=== PATIENT | male | born 1960 | race Hispanic/Latino ===

== ENCOUNTER 2017-10-10 17:57 | Emergency (ER) | payer MEDICAID ==
[2017-10-10 18:15] VITALS: BP 163/91; PULSE 84; RESP 18; TEMP 97.6; O2SAT 97
[2017-10-10] MEDS ORDERED: Amoxicillin-Clav 875-125 mg Tab PO STA (18:34)
--- NOTE | 2017-10-10 18:37 | C.PDOC ---
History Of Present Illness 57 yo male come in for evaluation of Right ear " burning sensation" gradually developed for past few days. Pt reports, " burning in ear and in front". Otherwise, pt denies fever, chills, ear discharge, headache, dizziness, vertigo , tinnitus, sore throat, neck pain, cough, denies known trauma or injury, denies rash. Ambulate to Ed for evaluation, not in nay apparent distress. Time Seen by Provider: 10/10/17 18:12 Chief Complaint (Nursing): ENT Problem History Per: Patient Past Medical History Reviewed: Historical Data, Nursing Documentation, Vital Signs Vital Signs: Last Vital Signs Temp 97.6 F 10/10/17 18:12 Pulse 84 10/10/17 18:12 Resp 18 10/10/17 18:12 BP 163/91 H 10/10/17 18:12 Pulse Ox 97 10/10/17 18:12 - Medical History PMH: Bipolar Disorder, Diverticulitis, HTN, Hypercholesterolemia Family History: States: No Known Family Hx - Social History Hx Tobacco Use: No Hx Alcohol Use: No Hx Substance Use: No (clean x11 yrs) - Immunization History Hx Tetanus Toxoid Vaccination: No Hx Influenza Vaccination: Yes Hx Pneumococcal Vaccination: No Review Of Systems Except As Marked, All Systems Reviewed And Found Negative. Constitutional: Negative for: Fever, Chills Eyes: Negative for: Vision Change, Redness ENT: Positive for: Ear Pain. Negative for: Ear Discharge, Nose Discharge, Mouth Pain, Mouth Swelling, Throat Pain, Throat Swelling Cardiovascular: Negative for: Chest Pain, Palpitations Respiratory: Negative for: Cough, Shortness of Breath, Wheezing Gastrointestinal: Negative for: Nausea, Vomiting Musculoskeletal: Negative for: Neck Pain Skin: Negative for: Rash Neurological: Negative for: Weakness, Numbness, Headache, Dizziness Physical Exam - Physical Exam Appears: Well, Non-toxic, No Acute Distress Skin: Normal Color, Warm, Dry, No Rash Head: Normacephalic Eye(s): bilateral: PERRL Ear(s): Left: Normal, Right: Other (fluid lever noted behind TM. No ear canal edema or erythema, no discharge. Mo mastoid tenderness.) Nose: No Flaring, No Discharge Oral Mucosa: Moist, No Drooling Tongue: Normal Appearing Lips: Normal Appearing Throat: No Erythema, No Drooling Neck: Normal ROM, Trachea Midline, No Midline Cervical Tenderness, No Paracervical Tenderness, No Step Off Deformity, Supple Cardiovascular: Rhythm Regular Respiratory: No Decreased Breath Sounds, No Accessory Muscle Use Extremity: Normal ROM, No Deformity, No Swelling Neurological/Psych: Oriented x3, Normal Speech ED Course And Treatment O2 Sat by Pulse Oximetry: 97 Pulse Ox Interpretation: Normal Progress Note: On re-eval, pt is afebrile, hemodynamicaly stable. Non-toxic. Ambulatory in ED with stable gait. PulseOx 97%RA. ENT: exam c/w Right otitis media. No mastoid tenderness. Neck: Supple, (-) midline tenderness. Lungs: CTA B/L, BS equal B/L. Neurologicaly intact. Pt advised on course of ds. ref. to f/u with PMD, ENT in 2-3 days for re-eval. return to Ed if any worsening or new changes. Disposition Counseled Patient/Family Regarding: Diagnosis, Need For Followup, Rx Given - Disposition Referrals: Eduardo Ye MD [Staff Provider] - Loki Davis MD [Staff Provider] - Disposition: HOME/ ROUTINE Disposition Time: 18:43 Condition: STABLE Additional Instructions: Keep ear dry, avoid water exposure Avoid exposure to cold air, stay away from AC Take medication as prescribed Follow up with PMD, ENT in 2-3 days for re-evaluation. return to ED if any worsening or new changes. Prescriptions: Amoxicillin/Clavulanate [Augmentin 875 MG-125 MG] 1 tab PO BID #14 tab Prednisone [Deltasone] 40 mg PO DAILY #6 tablet Instructions: Serous Otitis Media - Clinical Impression Clinical Impression: Otitis media
[2017-10-10] MEDS ORDERED: Amoxicillin-Clav 875-125 mg Tab PO ONE (18:45)
== END 2017-10-10 18:56 | disposition home or self-care (01) ==
LOC: C.ER 17:57
DX: H66.90 Otitis media, unspecified, unspecified ear (principal); E78.00 Pure hypercholesterolemia, unspecified; I10 Essential (primary) hypertension; F31.9 Bipolar disorder, unspecified

== ENCOUNTER 2018-01-13 16:08 | Emergency (ER) | payer MEDICAID ==
[2018-01-13 16:19] VITALS: BP 171/108; PULSE 97; RESP 20; TEMP 98.2; O2SAT 99
--- NOTE | 2018-01-13 18:14 | C.PDOC ---
History Of Present Illness 57 y/o male presents to the ED complaining of a sore throat and earache for the past 2 days. Also with mild cough. Patient denies any fever, SOB, wheezing, congestion, or other associated symptoms. Time Seen by Provider: 01/13/18 16:32 Chief Complaint (Nursing): ENT Problem History Per: Patient History/Exam Limitations: None Onset/Duration Of Symptoms: Days (x2) Current Symptoms Are (Timing): Still Present Past Medical History Reviewed: Historical Data, Nursing Documentation, Vital Signs Vital Signs: Last Vital Signs Temp 98.2 F 01/13/18 16:12 Pulse 97 H 01/13/18 16:12 Resp 20 01/13/18 16:12 BP 171/108 H 01/13/18 16:12 Pulse Ox 99 01/13/18 16:12 - Medical History PMH: Bipolar Disorder, Diverticulitis, HTN, Hypercholesterolemia Surgical History: No Surg Hx Family History: States: No Known Family Hx - Social History Hx Tobacco Use: No Hx Alcohol Use: Yes (Ex Drinker) Hx Substance Use: No (clean x11 yrs) - Immunization History Hx Tetanus Toxoid Vaccination: No Hx Influenza Vaccination: Yes (12/15/2017) Hx Pneumococcal Vaccination: No Review Of Systems Constitutional: Negative for: Fever, Chills ENT: Positive for: Ear Pain, Throat Pain. Negative for: Nose Discharge, Nose Congestion Respiratory: Negative for: Cough, Shortness of Breath, Hemoptysis, Sputum Gastrointestinal: Negative for: Nausea, Vomiting, Diarrhea Skin: Negative for: Rash Neurological: Negative for: Headache Physical Exam - Physical Exam Appears: Non-toxic, No Acute Distress Skin: Normal Color, Warm, Dry Head: Atraumatic, Normacephalic Eye(s): bilateral: Normal Inspection, PERRL, EOMI Ear(s): Bilateral: Normal (no erythema) Oral Mucosa: Moist Throat: Erythema (mild pharyngeal erythema), No Exudate Neck: Normal ROM, Supple Cardiovascular: Rhythm Regular, No Murmur Respiratory: Normal Breath Sounds, No Accessory Muscle Use, No Wheezing Extremity: Bilateral: Atraumatic, Normal Color And Temperature Neurological/Psych: Oriented x3, Normal Speech ED Course And Treatment O2 Sat by Pulse Oximetry: 99 (RA) Pulse Ox Interpretation: Normal - Radiology CXR: Interpreted by Me, Viewed By Me CXR Interpretation: Yes: No Acute Disease Progress Note: CXR taken, and appears normal. Counseled patient regarding exam findings and likely diagnosis. Patient will be discharged home with amoxicillin, cough med, and motrin. Advised to follow up with PMD for further evaluation. Disposition - Disposition Disposition: HOME/ ROUTINE Disposition Time: 18:11 Condition: STABLE Additional Instructions: FOLLOW UP WITH YOUR PMD WITHIN 1-2 DAYS. RETURN TO ED IF FEEL WORSE. 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 - Scribe Statement The provider has reviewed the documentation as recorded by the Scribe (Marita Mckeon) All medical record entries made by the Scribe were at my direction and personally dictated by me. I have reviewed the chart and agree that the record accurately reflects my personal performance of the history, physical exam, medical decision making, and the department course for this patient. I have also personally directed, reviewed, and agree with the discharge instructions and disposition.
--- NOTE | 2018-01-13 18:44 | RAD ---
HISTORY: COUGH COMPARISON: Chest x-ray performed 08/28/16 TECHNIQUE: Chest PA and lateral FINDINGS: LUNGS: No focal consolidation. Please note that chest x-ray has limited sensitivity for the detection of pulmonary masses. PLEURA: No significant pleural effusion identified. No definite pneumothorax . CARDIOVASCULAR: Heart size appears within normal limits. Faint atherosclerotic calcification present. OSSEOUS STRUCTURES: Degenerative changes of the spine. VISUALIZED UPPER ABDOMEN: Unremarkable. OTHER FINDINGS: None. IMPRESSION: No focal consolidation.
== END 2018-01-13 18:21 | disposition home or self-care (01) ==
LOC: C.ER 16:08
DX: J02.9 Acute pharyngitis, unspecified (principal); E78.00 Pure hypercholesterolemia, unspecified; I10 Essential (primary) hypertension

== ENCOUNTER 2018-05-06 18:06 | Emergency (ER) | payer MEDICAID ==
--- NOTE | 2018-05-06 20:34 | C.PDOC ---
History Of Present Illness Patient is a 58 year old male, with a PMHx of anxiety, HTN, HLD, who presents to the ED for right sided rib pain s/p injury 1 day prior. Patient states that he was walking down the street when he tripped on edge of sidewalk and fell, but was able to get up right away. Patient states that over the last day his right lateral rib pain has worsened, especially with deep breaths. He took ibuprofen earlier this afternoon with some relief. He denies any head strike, LOC, SOB, back pain, neck pain, headache, vision change, dizziness, abdominal pain, or pain elsewhere. Time Seen by Provider: 05/06/18 19:11 Chief Complaint (Nursing): Rib Injury History Per: Patient History/Exam Limitations: no limitations Onset/Duration Of Symptoms: Days (1) Current Symptoms Are (Timing): Still Present Recent travel outside of the [place]: No Additional History Per: Patient Past Medical History Reviewed: Historical Data, Nursing Documentation, Vital Signs Vital Signs: Last Vital Signs Temp 97.8 F 05/06/18 18:42 Pulse 81 05/06/18 18:42 Resp 18 05/06/18 18:42 BP 133/88 05/06/18 18:42 Pulse Ox 97 05/06/18 18:42 - Medical History PMH: Bipolar Disorder, Diverticulitis, HTN, Hypercholesterolemia Surgical History: No Surg Hx Family History: States: No Known Family Hx - Social History Hx Tobacco Use: No Hx Alcohol Use: No Hx Substance Use: No (clean x11 yrs) - Immunization History Hx Tetanus Toxoid Vaccination: No Hx Influenza Vaccination: Yes Hx Pneumococcal Vaccination: No Review Of Systems Eyes: Negative for: Pain, Vision Change ENT: Negative for: Nose Congestion, Throat Pain Cardiovascular: Negative for: Chest Pain, Palpitations, Light Headedness Respiratory: Negative for: Cough, Shortness of Breath Gastrointestinal: Negative for: Nausea, Vomiting, Abdominal Pain Musculoskeletal: Positive for: Other (right lateral rib pain ). Negative for: Neck Pain, Back Pain Skin: Negative for: Rash, Bruising Neurological: Negative for: Weakness, Numbness, Headache, Dizziness Physical Exam - Physical Exam Appears: Well, Non-toxic, No Acute Distress Skin: Normal Color, Warm, Dry, No Ecchymosis Head: Atraumatic, Normacephalic Eye(s): bilateral: Normal Inspection, PERRL, EOMI Ear(s): Bilateral: Normal (no hemotympanum ) Nose: Normal Neck: Normal ROM, No Midline Cervical Tenderness, No Paracervical Tenderness, Evans pple Chest: Symmetrical, No Deformity, Tenderness (right lateral ribs ), No Ecchymosis, No Subcutaneous Emphysema Cardiovascular: Rhythm Regular, No Murmur Respiratory: Normal Breath Sounds, No Rales, No Rhonchi, No Wheezing Gastrointestinal/Abdominal: Soft, No Tenderness Back: Normal Inspection, No Vertebral Tenderness, No Decreased ROM, No Muscle Spasm, No Paraspinal Tenderness Extremity: Normal ROM, No Tenderness, Capillary Refill (<2s) Extremity: Bilateral: Atraumatic, Normal Color And Temperature, Normal ROM Pulses: Left Radial: Normal, Right Radial: Normal Neurological/Psych: Oriented x3, Normal Speech, Normal Motor, Normal Sensation Gait: Steady ED Course And Treatment O2 Sat by Pulse Oximetry: 97 (on RA) Pulse Ox Interpretation: Normal Medical Decision Making Medical Decision Making: Plan: Xray Ribs and Chest Tylenol 975mg PO Lidoderm patch Reports improvement in pain with medication. Xray read as negative for fracture, PTX as read by me and ED attending Dr. Darden. Advised PMD followup. Will discharge home with pain medication. Diagnostic testing results and plan of care discussed with patient. Strict instructions given regarding prescription use, importance of followup, and signs/symptoms to return to ER including SOB, chest pain, or any other new/worsening symptoms. Pt verbalized understanding of discussion. Patient is A&Ox3, ambulating with steady gait, with vital signs stable for discharge. Disposition - Disposition Referrals: [facility] [Outside] Disposition: HOME/ ROUTINE Disposition Time: 22:00 Condition: GOOD Additional Instructions: Ibuprofen every 8 hours as needed for pain, take with food Lidoderm patches daily as needed, 12 hours on, 12 hours off Rest, no strenuous activity No heavy lifting Followup with primary doctor or clinic within 2 days Return to ER with any new/worsening symptoms Prescriptions: Ibuprofen [Motrin Tab] 800 mg PO Q8H PRN #21 tab PRN Reason: Pain, Moderate (4-7) Lidocaine 5% [Lidoderm] 1 ea TD DAILY PRN #30 patch PRN Reason: Pain, Mild (1-3) Instructions: Rib Fractures in Adults, Bruised Rib (DC) Forms: General Discharge Instructions, Work/School/Gym Excuse, [facility] (Jamaican) - Clinical Impression Clinical Impression: Bruised ribs - 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 - Scribe Statement The provider has reviewed the documentation as recorded by the Jelani Lucero All medical record entries made by the Emileeibsony were at my direction and personally dictated by me. I have reviewed the chart and agree that the record accurately reflects my personal performance of the history, physical exam, medical decision making, and the department course for this patient. I have also personally directed, reviewed, and agree with the discharge instructions and disposition.
[2018-05-06 21:57] VITALS: BP 128/87; PULSE 74; RESP 16; TEMP 98.2
[2018-05-06] MEDS ORDERED: Lidocaine 5% Patch TD STA (22:01)
[2018-05-06] MEDS ORDERED: Lidocaine 5% Patch TD ONE (22:15)
[2018-05-07 09:25] VITALS: O2SAT 97
--- NOTE | 2018-05-07 11:38 | RAD ---
Date of service: 05/06/2018 PROCEDURE: Radiographs of the Chest and Right Ribs. HISTORY: fall today, right rib pain COMPARISON: None available. TECHNIQUE: Frontal radiograph of the chest and multiple oblique radiographs of the right ribs were obtained. FINDINGS: RIGHT RIBS: No acute rib fracture. Bone alignment is normal. There is mild diffuse bone demineralization. LUNGS: The lungs are well inflated and clear. PLEURA: No pneumothorax or pleural fluid. CARDIOVASCULAR: Normal cardiac size. No pulmonary vascular congestion. No aortic atherosclerotic calcification present OTHER FINDINGS: None. IMPRESSION: No acute rib fracture. Clear lungs.
== END 2018-05-06 22:23 | disposition home or self-care (01) ==
LOC: C.ER 18:06
DX: S20.211A Contusion of right front wall of thorax, initial encounter (principal); W01.0XXA Fall on same level from slipping, tripping and stumbling without subsequent striking against object, initial encounter; Y93.01 Activity, walking, marching and hiking; Y92.480 Sidewalk as the place of occurrence of the external cause; E78.00 Pure hypercholesterolemia, unspecified; I10 Essential (primary) hypertension